=== PATIENT | female | born 1990 | race Caucasian/White ===

== ENCOUNTER 2017-03-16 06:00 | Inpatient (IN) ==
--- OUTSIDE RECORDS SUMMARY | 2017-03-16 06:07 | External Medical Summary | Continuity of Care Document ---
:1990 Author Organization [facility] Allergies Active Description Code Type Severity Reaction Onset Reported/ Identified Relationship Clinical to Patient Status Yes minocycline 4864 1 N/A hives Yes PAROXETINE 4017 1 N/A Hives HCL Medications Medication Packaging Start Date Stop Date Route Dosage Sig VITAFOL-OB Tablet 12/28/2016 02/19/2017 take 1 tablet by oral route every day LEVOTHYROXINE SODIUM Tablet 12/28/2016 02/07/2017 take 1 tablet by oral route every day PROZAC Capsule 01/25/2017 take 2 capsule by oral route every day LEVOTHYROXINE SODIUM Tablet 02/07/2017 take 1 tablet by oral route every day Problems Date Dx Coded Attending Type Code Diagnosis Diagnosed By 12/29/2016 Karina Vázquez F17.210 Nicotine dependence, cigarettes, uncomplicated 12/29/2016 Karina Vázquez O09.893 Supervision of other high risk pregnancies, third trimester 12/29/2016 Karina Vázquez O99.283 Endo, nutritional and metab diseases comp preg, third tri 12/29/2016 Karina Vázquez Z34.83 Encounter for suprvsn of normal , third trimester 12/29/2016 Karina Vázquez Z3A.28 28 weeks gestation of 01/11/2017 Karina Vázquez O99.283 Endo, nutritional and metab diseases comp preg, third tri 01/11/2017 Karina Vázquez Z3A.30 30 weeks gestation of 02/26/2017 Alyse Robles O09.893 Supervision of other high risk pregnancies, third trimester 02/26/2017 Alyse Robles O99.283 Endo, nutritional and metab diseases comp preg, third tri 02/26/2017 Alyse Robles O99.343 Oth mental disorders complicating , third trimester 02/26/2017 Alyse Robles3A.36 36 weeks gestation of Procedures Code Description [place] [address] Venpnctr fngr/heel/ear stick routne 12/28/2016 78993 OB Visit No Charge 12/28/2016 09279 Glucose test 12/28/2016 27819 TSH 12/28/2016 58051 Hematocrit blood count 12/28/2016 92803 Hemoglobin count, colorimetric 12/28/2016 61695 Ultrasnd preg uterus, flwup/repeat 01/11/2017 21719 OB Visit No Charge 02/21/2017 80046 Immuniz admnin, 1 vac, sngl/combo 02/21/2017 43440 TDAP VACCINE >7 IM 02/21/2017 Results Encounters ACCT No. Visit Discharge Status Pt. Type Provider Facility Loc./Unit Complaint Date/Time [id number] 03/08/2017 03/08/2017 [facility]LS Outpatient [facility]reet, 14:00:00 23:59:59 Karina L [id number] 03/01/2017 03/01/2017 CLS Outpatient Quint[facility]illa, 11:00:00 23:59:59 Marisa S [id number] 02/21/2017 02/21/2017 CLS Outpatient Robles, 15:20:00 23:59:59 Alyse K [id number] 02/08/2017 02/08/2017 CLS Outpatient Gurpreet, 14:40:00 23:59:59 Karina L [id number] 02/07/2017 02/07/2017 CLS Outpatient Gurpreet, 09:12:00 23:59:59 Karina L [id number] 01/25/2017 01/25/2017 CLS Outpatient Gurpreet, 15:40:00 23:59:59 Karina L [id number] 01/11/2017 01/11/2017 CLS Outpatient Gurpreet, 14:00:00 23:59:59 Karina L [id number] 01/11/2017 01/11/2017 CLS Outpatient Gurpreet, 13:45:00 23:59:59 Karina L [id number] 12/28/2016 12/28/2016 CLS Outpatient Gurpreet, 13:15:00 23:59:59 Karina L [id number] 12/20/2016 12/20/2016 CLS Outpatient Gurpreet, 10:59:00 23:59:59 Karina L
[2017-03-16] MEDS ORDERED: LIDOCAINE 1% (10mg/ml) 2mL INJ PF SDV ID PRN (06:13)
[2017-03-16] MEDS ORDERED: CARBOPROST 250 MCG/ML INJECTION IM PRN (06:13)
[2017-03-16] MEDS ORDERED: CALCIUM CARBONATE Chewable 500mg TABLET PO PRN ×2 (06:13→21:17)
[2017-03-16] MEDS ORDERED: ACETAMINOPHEN 500 MG TABLET PO PRN ×2 (06:13→21:17)
[2017-03-16] MEDS ORDERED: OXYTOCIN DRIP 30 UNIT/500 ML ML IV PRN ×2 (06:13→21:51)
[2017-03-16] MEDS ORDERED: MAG-AL + SIM ORAL LIQUID 30ml PO PRN ×2 (06:13→21:17)
[2017-03-16] MEDS ORDERED: METHYLERGONOVINE 0.2 MG/ML INJECTION IM PRN (06:13)
[2017-03-16] MEDS: LR 1,000 ML IV PRN ×4 (06:52→15:32)
[2017-03-16] MEDS: D5LR 1,000 ML IV PRN ×2 (06:53→15:22)
[2017-03-16 07:30] VITALS: BMI 34.9
[2017-03-16] MEDS ORDERED: AMPICILLIN 2 GM in NS 100 ML IV SCH (07:30)
[2017-03-16] MEDS ORDERED: AMPICILLIN 1 GM in NS 100 ML IV SCH ×2 (07:30→07:45)
--- NOTE | 2017-03-16 09:06 | Anesthesia Preoperative Report ---
Anesthesia Epidural/Spinal Rec - Date and Time Date: 03/16/17 Preoperative Diagnosis: term induction Procedure: Labor Epidural Plan: Epidural - Vital Signs Vital Signs: Temperature 97.6 F 03/16/17 07:03 Pulse Rate 96 03/16/17 07:03 Respiratory Rate 16 03/16/17 07:03 Blood Pressure 112/71 03/16/17 07:03 /Para: P:1 - Medictaions & Allergies Inpatient Medications: Current Medications Acetaminophen (Tylenol) 500 - 1,000 mg PO Q4H PRN PRN Reason: Pain Al Hydroxide/Mg Hydroxide (Maalox Plus) 30 ml PO Q3H PRN PRN Reason: Indigestion Calcium Carbonate (Tums) 500 - 1,000 mg PO Q2H PRN PRN Reason: Indigestion Carboprost Tromethamine (Hemabate) 250 mcg IM O PRN PRN Reason: .Downtime Dextrose/Lactated Ringer's (Dextrose 5%-Lactated Ringers) 1,000 mls @ 125 mls/ hr IV .Q8H PRN PRN Reason: Labor Last Admin: 03/16/17 06:53 Dose: 125 mls/hr Lactated Ringer's (Lactated Ringers) 1,000 mls @ 1,000 mls/hr IV .Q1H PRN PRN Reason: as directed Last Admin: 03/16/17 06:52 Dose: 1,000 mls/hr Oxytocin (Pitocin Drip) 30 unit in 500 mls @ 2 mls/hr IV .Q24H PRN; Protocol PRN Reason: Induction/Augmentation Last Admin: 03/16/17 06:54 Dose: 2 mls/hr Ampicillin Sodium 2 gm/ Sodium (Chloride) 100 mls @ 200 mls/hr IV O [place] Last Admin: 03/16/17 07:24 Dose: 200 mls/hr Ampicillin Sodium 1 gm/ Sodium (Chloride) 100 mls @ 200 mls/hr IV Q4H [place] Lidocaine HCl (Xylocaine-Mpf 1% Vial) 0.2 mg ID O PRN PRN Reason: IV Start Methylergonovine Maleate (Methergine) 0.2 mg IM O PRN Misoprostol (Cytotec) 800 mcg [place] ONCE PRN Allergies/Adverse Reactions: Allergies Allergy/AdvReac Type Severity Reaction Status Date / Time minocycline Allergy Hives Verified 03/16/17 07:38 paroxetine AdvReac Hives Verified 03/16/17 07:38 - Home Medications Home Medications: Home Medications Medication Instructions Recorded Confirmed Type Levothyroxine Tab [Synthroid] 50 mcg PO ACB 03/04/17 03/16/17 History ,Calc.40/Iron/Folate 1 1 each PO DAILY 03/04/17 03/16/17 History [Pnv-Select Tablet] Prozac 10 mg PO DAILY 03/04/17 03/16/17 History - Surgical History Hx Family Anesthesia Reaction: No History of Motion Sickness: No - Social History Smoking Status: Current every day smoker packs per day: 1 Pack-years: 5 Second Hand Exposure: Yes Substance Use Type: does not use Alcohol Intake: former Alcohol Intake Frequency: does not drink Hx Chewing Tobacco Use: No - Pertinent Findings Lab Data: CBC and BMP 03/16/17 06:44 - Physical Exam Respiratory Exam: lungs clear, bilateral breath sounds equal Cardiovascular Exam: regular rate and rhythm, no murmur - Airway Assessment Mallampati Score: I TMD: 3 Fingerbreadths Neck Extension: good Overall Assessment: may be difficult intubation - ASA ASA Score: 2 - Discussion Discussion: Discussed risks/options/alternatives of anesthesia and questions answered. Patient consents. Nursing pain assessment noted. Anesthesia Discussion: spouse, family member Attestation Statement: Prior to the delivery of any anesthetic medication, I examined the patient, developed the plan, obtained the patient's consent and discussed the risk and benefits of the procedure with the patient/guardian.
[2017-03-16] MEDS: AMPICILLIN 1 GM in NS 100 ML IV SCH ×3 (11:13→19:45)
[2017-03-16] MEDS ORDERED: NALOXONE 0.4 MG/ML INJECTION IVP PRN (12:23)
[2017-03-16] MEDS ORDERED: ROPIVACAINE 1% 10MG/ML INJ 200 MG, SUFentanil 50 MCG in NS 100 ML EPI PRN (12:23)
[2017-03-16] MEDS ORDERED: DiphenhydrAMINE 50 MG/ML INJECTION IVP PRN (12:23)
[2017-03-16] MEDS ORDERED: ONDANSETRON 4 MG/2 ML INJECTION IVP PRN (12:23)
--- NOTE | 2017-03-16 21:13 | OB/GYN Procedure Note ---
Delivery date: 03/16/17 Events: Labor Induction Induction method: per pitocin protocol Delivery augmentation: rupture of membranes Delivery monitor: external FHT Route of delivery: Episiotomy description: None Laceration description: Periurethral - 1st Degree Estimated blood loss (mL): 200 Anesthesia type: Epidural Disposition: floor Complications: None Narrative: Delivery of Viable Female infant in cephalic OA position. Nuchal tx 1 reduce and body cord. Spontaneous delivery of placenta.
[2017-03-16] MEDS ORDERED: HYDROCORTISONE 2.5% CREAM 30gm RECTALLY PRN (21:17)
[2017-03-16] MEDS ORDERED: DiphenhydrAMINE 25 MG CAPSULE PO PRN (21:17)
[2017-03-16] MEDS ORDERED: SALINE FLUSH 10ml SYRINGE IVF PRN (21:17)
[2017-03-16] MEDS: IBUPROFEN 800 MG TABLET PO PRN (22:01)
[2017-03-17] MEDS: Oxycodone/Acetaminophen 5/325 1 TAB PO PRN ×5 (00:35→22:36)
[2017-03-17] MEDS: PRENATAL VITAMIN TABLET PO SCH (08:22)
[2017-03-17] MEDS: IBUPROFEN 800 MG TABLET PO PRN ×2 (08:22→16:39)
[2017-03-17] MEDS: LEVOTHYROXINE 50 MCG TABLET PO SCH (08:23)
[2017-03-17] MEDS: DOCUSATE CALCIUM 240 MG CAPSULE PO SCH (08:23)
--- NOTE | 2017-03-17 08:26 | Anesthesia Postoperative Note ---
- Date and Time Date: 03/17/17 Time: 08:25 - Status Patient Participated in Evaluation: Patient Participated in Person Vital Signs: Temperature 98.2 F 03/17/17 00:30 Pulse Rate 71 03/17/17 00:30 Respiratory Rate 16 03/17/17 00:30 Blood Pressure 99/55 03/17/17 00:30 Pulse Oximetry 97 03/17/17 00:30 Oxygen Delivery Method Room Air Respiratory Function: Airway Patent, Regular Respirations Cardiovascular Function: Regular Pulse Mental Status: Alert and Oriented Pain Intensity: 0 Hydration: Taking PO Fluids Complications During Recover: None Apparent - Follow-Up Instructions Instructions: Per Surgeon
[2017-03-17] MEDS ORDERED: IRON PO SCH (09:00)
[2017-03-17] MEDS ORDERED: PRENATAL CALC PO SCH (09:00)
[2017-03-17] MEDS ORDERED: FLUoxetine 10 MG CAPSULE PO SCH (09:00)
[2017-03-17] MEDS ORDERED: FOLATE PO SCH (09:00)
[2017-03-17] MEDS ORDERED: [UNRECOGNIZED DRUG - OTHER] PO SCH (09:00)
--- NOTE | 2017-03-17 13:27 | OB/GYN Progress Note ---
OB-PP Progress Note - General PPD1 Maternal Group B Strep: Not Done/No Results - Subjective Date: 03/17/17 Lochia: Minimal Pain: contolled Voiding: voiding Nausea or Vomiting Present: No - Objective Vital Signs: Last Vital Signs Temp 97.9 F 03/17/17 08:00 Pulse 75 03/17/17 08:00 Resp 18 03/17/17 08:00 BP 101/63 03/17/17 08:00 Pulse Ox 97 03/17/17 08:00 Urine Output: good General: alert and oriented Cardiovascular: regular rate,rhythm Respiratory: non-labored Abdomen: fundus firm, non-tender Extremities: non-tender - Assessment Assessment: SP, - Plan Expected date of discharge: 03/18/17
[2017-03-18] MEDS: IBUPROFEN 800 MG TABLET PO PRN ×2 (05:35→17:08)
[2017-03-18] MEDS: Oxycodone/Acetaminophen 5/325 1 TAB PO PRN ×2 (05:35→13:27)
[2017-03-18] MEDS: LEVOTHYROXINE 50 MCG TABLET PO SCH (07:23)
[2017-03-18] MEDS: PRENATAL VITAMIN TABLET PO SCH (09:16)
[2017-03-18] MEDS: DOCUSATE CALCIUM 240 MG CAPSULE PO SCH (09:16)
--- NOTE | 2017-03-18 11:12 | OB/GYN Progress Note ---
OB-PP Progress Note - General PPD2 Maternal Group B Strep: Not Done/No Results - Subjective Date: 03/18/17 Lochia: Minimal Pain: contolled Voiding: voiding Nausea or Vomiting Present: No - Objective Vital Signs: Last Vital Signs Temp 97.7 F 03/18/17 06:00 Pulse 63 03/18/17 06:00 Resp 16 03/18/17 06:00 BP 108/64 03/18/17 06:00 Pulse Ox 97 03/17/17 08:00 General: alert and oriented Respiratory: non-labored Abdomen: fundus firm, non-tender, soft Extremities: non-tender Edema: none - Assessment Assessment: SP, - Plan Plan: routine care, discharge home
--- NOTE | 2017-03-18 11:15 | Discharge Instructions ---
Discharge Plan - Med Rec/Dispo Prescriptions: New Ibuprofen [Motrin] 800 mg PO Q8H PRN #30 tablet PRN Reason: Pain Oxycodone/APAP 5/325 [Percocet 5/325] 1 - 2 tab PO Q4H PRN #30 tablet PRN Reason: Pain Continue ,Calc.40/Iron/Folate 1 [Pnv-Select Tablet] 1 each PO DAILY Levothyroxine Tab [Synthroid] 50 mcg PO ACB Prozac 10 mg PO DAILY - Disposition Discharged Home, Self-Care
[2017-03-18 17:21] VITALS: BP 119/71; PULSE 77; RESP 18; TEMP 98.3; O2SAT 100
== END 2017-03-18 17:25 | disposition home or self-care (01) | DRG 775 ==
LOC: MC 06:03
PROVIDERS: ADMIT Obstetrics & Gynecology; ATTEND Obstetrics & Gynecology